=== PATIENT | female | born 1980 | race Hispanic/Latino ===

== ENCOUNTER 2018-01-07 06:32 | Day surgery (SDC) | payer BC ==
[~2018-01-07] VITALS: Ht 154.9 cm; Wt 113.4 kg
[~2018-01-07 06:32] MED LIST: BECL8.7A7 IH; BECL8.7H NS; BUDE10.2 IH; LEVO88TA4 PO; NORE-8 PO; PANT40TA25 PO; SODIUM CHLORIDE 0.9% 1000ML 1,000 ML IV ONE
[2018-01-07 07:47] VITALS: BP 119/88
[2018-01-07] MEDS ORDERED: PROPOFOL 10 MG/ML 20ML VIAL IV ONE (08:10)
[2018-01-07 08:30] VITALS: BP 111/62
== END 2018-01-07 09:00 | disposition home or self-care (01) ==
LOC: ENDO 06:32 → DAH 06:32 → ENDO 09:00
PROVIDERS: ATTEND Internal Medicine Gastroenterology
DX: K57.30 Diverticulosis of large intestine without perforation or abscess without bleeding (principal); D50.0 Iron deficiency anemia secondary to blood loss (chronic); K27.9 Peptic ulcer, site unspecified, unspecified as acute or chronic, without hemorrhage or perforation; K21.9 Gastro-esophageal reflux disease without esophagitis; J45.909 Unspecified asthma, uncomplicated; E03.9 Hypothyroidism, unspecified; Z90.49 Acquired absence of other specified parts of digestive tract; Z98.890 Other specified postprocedural states; F43.10 Post-traumatic stress disorder, unspecified; Z68.42 Body mass index [BMI] 45.0-49.9, adult; Z83.71 Family history of colonic polyps
CPT/HCPCS: 36415; 45378; 84703; A4606; J2704; J7030

== ENCOUNTER 2018-12-06 12:45 | Emergency (ER) | payer BC ==
[~2018-12-06 12:45] MED LIST changes: -BUDE10.2 IH; -SODIUM CHLORIDE 0.9% 1000ML 1,000 ML IV ONE
[2018-12-06] MEDS ORDERED: KETOROLAC TROMETHAMINE 60 MG/2 ML VIAL ONE (13:34)
[2018-12-06] MEDS ORDERED: ORPHENADRINE CITRATE 30 MG/ML ML ONE (13:34)
[2018-12-06] MEDS ORDERED: HYDROCODONE/ACETAMINOPHEN 10/325 MG TAB ONE (13:35)
[2018-12-06 13:51] LABS: APPEARANCE,URINE CLEAR (CLEAR); BILIRUBIN,URINE NEGATIVE (NEGATIVE); COLOR,URINE YELLOW (YELLOW); GLUCOSE, URINE (UA) NEGATIVE (NEGATIVE); KETONES,URINE NEGATIVE (NEGATIVE); LEUKOCYTE ESTERASE ,URINE NEGATIVE (NEGATIVE); NITRATE,URINE NEGATIVE (NEGATIVE); OCCULT BLOOD,URINE NEGATIVE (NEGATIVE); PROTEIN,URINE NEGATIVE (NEGATIVE); UROBILINOGEN,URINE 0.2 mg/dL (0.2-1.0)
[2018-12-06] MEDS ORDERED: MORPHINE SULFATE 8 MG/ML VIAL ONE (15:38)
[2018-12-06] MEDS ORDERED: MORPHINE SULFATE 4 MG/1ML SYG ONE (15:39)
== END 2018-12-06 16:19 | disposition home or self-care (01) ==
LOC: EDH 12:45
DX: S33.5XXA Sprain of ligaments of lumbar spine, initial encounter (principal); J45.909 Unspecified asthma, uncomplicated; E03.9 Hypothyroidism, unspecified; Z87.442 Personal history of urinary calculi; Z88.1 Allergy status to other antibiotic agents; Z91.040 Latex allergy status; Z91.018 Allergy to other foods; Z87.891 Personal history of nicotine dependence; X58.XXXA Exposure to other specified factors, initial encounter; Y93.89 Activity, other specified; Y92.89 Other specified places as the place of occurrence of the external cause; Y99.8 Other external cause status
CPT/HCPCS: 81003; 81025; 96372 ×3; 99284; J1885; J2270 ×2; J2360

== ENCOUNTER 2018-12-07 16:00 | Emergency (ER) | payer BC ==
[2018-12-07] MEDS ORDERED: SODIUM CHLORIDE 0.9% 1000ML 1,000 ML IV ONE (16:36)
[2018-12-07] MEDS ORDERED: KETOROLAC TROMETHAMINE 15MG/ML ONE ×2 (16:36→18:10)
[2018-12-07] MEDS ORDERED: DIAZEPAM 5 MG TABLET ONE (16:37)
[2018-12-07 16:41] LABS: APPEARANCE,URINE Clear (CLEAR); BILIRUBIN,URINE Negative (NEGATIVE); COLOR,URINE Yellow (YELLOW); GLUCOSE, URINE (UA) Negative (NEGATIVE); KETONES,URINE Negative (NEGATIVE); LEUKOCYTE ESTERASE ,URINE Negative (NEGATIVE); NITRATE,URINE Negative (NEGATIVE); OCCULT BLOOD,URINE Negative (NEGATIVE); PROTEIN,URINE Negative (NEGATIVE); UROBILINOGEN,URINE 0.2 mg/dL (0.2-1.0)
[2018-12-07 16:44] LABS: EOSINOPHILS % (AUTO) 0.1 % (0.0-8.0); HEMATOCRIT 38.3 % (36-48); LYMPHOCYTES % (AUTO) 22.9 % (21.0-51.0); MEAN CORPUSCULAR HEMOGLOBIN 25.8 pg (27.0-33.0); MEAN CORPUSCULAR VOLUME 83.3 fL (79-99); MONOCYTES % (AUTO) 6.8 % (3.0-13.0); NEUTROPHILS % (AUTO) 69.2 % (40.0-77.0); PLATELET COUNT (AUTO) 355 K/uL (130-400); RED BLOOD CELL COUNT(AUTO) 4.59 MIL/uL (4.00-5.50); RED CELL DISTRIBUTION WIDTH 15.3 % (11.0-15.5); WHITE BLOOD COUNT (AUTO) 12.2 K/uL (4.8-10.8)
[2018-12-07] MEDS ORDERED: LIDOCAINE 5% TOPICAL PATCH TP ONE (16:45)
[2018-12-07 16:51] LABS: CREATININE 0.6 mg/dL (0.5-1.5); POTASSIUM 3.7 mmol/L (3.5-5.1)
[2018-12-07 16:56] LABS: ALBUMIN 3.1 g/dL (3.5-5.0); BILIRUBIN,TOTAL 0.4 mg/dL (0.2-1.0); TOTAL PROTEIN, SERUM 7.8 g/dL (6.0-8.3)
[2018-12-07 17:15] LABS: INR 0.91 (0.85-1.15); PARTIAL THROMBOPLASTIN TIME 29.3 SEC (26.3-35.5); PROTHROMBIN TIME 9.6 SEC (9.6-11.6)
== END 2018-12-07 18:20 | disposition home or self-care (01) ==
LOC: EDH 16:00
DX: M54.6 Pain in thoracic spine (principal); R10.13 Epigastric pain; R11.2 Nausea with vomiting, unspecified; E03.9 Hypothyroidism, unspecified; G62.9 Polyneuropathy, unspecified; J45.909 Unspecified asthma, uncomplicated; Z88.1 Allergy status to other antibiotic agents; Z91.040 Latex allergy status; Z91.018 Allergy to other foods; Z90.49 Acquired absence of other specified parts of digestive tract; Z87.442 Personal history of urinary calculi
CPT/HCPCS: 36415; 71045; 80053; 81003; 82150; 83690; 85025; 85378; 85610; 85730; 93005; 96361; 96374; 96376; 99285; J1885 ×2; J7030

== ENCOUNTER 2021-02-11 17:17 | Emergency (ER) | payer BC ==
[~2021-02-11 17:17] MED LIST changes: -PANT40TA25 PO; +PANT40TA54 PO
[2021-02-11] MEDS ORDERED: SODIUM CHLORIDE 0.9% 1000ML 1,000 ML IV ONE (17:53)
[2021-02-11 18:35] LABS: BASOPHILS % (AUTO) 0.1 % (0.0-5.0); EOSINOPHILS % (AUTO) 0.1 % (0.0-8.0); LYMPHOCYTES % (AUTO) 30.5 % (21.0-51.0); MEAN CORPUSCULAR HEMOGLOBIN 26.9 pg (27.0-33.0); MEAN CORPUSCULAR HGB CONC 31.9 g/dL (32.0-36.0); MEAN CORPUSCULAR VOLUME 84.1 fL (79-99); MONOCYTES % (AUTO) 6.8 % (3.0-13.0); NEUTROPHILS % (AUTO) 62.1 % (40.0-77.0); PLATELET COUNT (AUTO) 342 K/uL (130-400); RED BLOOD CELL COUNT(AUTO) 4.28 MIL/uL (4.00-5.50); RED CELL DISTRIBUTION WIDTH 15.9 % (11.0-15.5); WHITE BLOOD COUNT (AUTO) 7.7 K/uL (4.8-10.8)
[2021-02-11 18:38] LABS: APPEARANCE,URINE Clear (CLEAR); BILIRUBIN,URINE Negative (NEGATIVE); COLOR,URINE Yellow (YELLOW); GLUCOSE, URINE (UA) TRACE mg/dL (NEGATIVE); KETONES,URINE Trace mg/dL (NEGATIVE); LEUKOCYTE ESTERASE ,URINE Small (NEGATIVE); NITRATE,URINE Negative (NEGATIVE); OCCULT BLOOD,URINE Large (NEGATIVE); PH,URINE 5.5 (5.0-8.0); PROTEIN,URINE Trace mg/dL (NEGATIVE); UROBILINOGEN,URINE 0.2 mg/dL (0.2-1.0)
[2021-02-11 18:40] LABS: HCG,QUAL RESULT NEGATIVE (NEGATIVE)
[2021-02-11] MEDS ORDERED: MORPHINE SULFATE 4 MG/1ML SYG ONE (18:50)
[2021-02-11 18:51] LABS: CREATININE 0.8 mg/dL (0.5-1.5); POTASSIUM 3.8 mmol/L (3.5-5.1)
[2021-02-11] MEDS ORDERED: ONDANSETRON HCL 4 MG/2 ML VIAL ONE (18:51)
[2021-02-11 19:05] LABS: ALBUMIN 3.5 g/dL (3.5-5.0); BILIRUBIN,TOTAL 0.3 mg/dL (0.2-1.0); TOTAL PROTEIN, SERUM 7.4 g/dL (6.0-8.3)
[2021-02-11 19:17] LABS: BACTERIA,URINE Few /HPF (None Seen); MUCUS,URINE Few LPF (None Seen); SQUAMOUS EPITHELIAL CELL,UR Few /HPF (0-2)
[2021-02-11] MEDS ORDERED: CEFTRIAXONE SODIUM 1 GM ONE (20:09)
[2021-02-11] MEDS ORDERED: SODIUM CHLORIDE 0.9% 50 ML IV ONE (20:12)
[2021-02-11] MEDS ORDERED: KETOROLAC TROMETHAMINE 30MG/ML ONE (20:15)
[2021-02-11] MEDS ORDERED: TAMSULOSIN HCL 0.4 MG CAP.ER.24H ONE (21:06)
[2021-02-17] MEDS ORDERED: PHEN-846 PO (03:00)
[2021-02-17] MEDS ORDERED: OXYB5TAB15 PO (03:01)
[2021-02-17] MEDS ORDERED: TAMS-1 PO (03:02)
[2021-02-17] MEDS ORDERED: CEPH250S PO (03:02)
[2021-02-17] MEDS ORDERED: ONDA4TAB4 PO (03:03)
[2021-02-17] MEDS ORDERED: MOME13HF2 IH (03:06)
[2021-02-17] MEDS ORDERED: ALBU8.5H8 IH (03:07)
[2021-02-20] MEDS ORDERED: CEFD300C3 PO (07:22)
== END 2021-02-11 22:22 | disposition home or self-care (01) ==
LOC: EDH 17:17
DX: N20.0 Calculus of kidney (principal); E03.9 Hypothyroidism, unspecified; J45.909 Unspecified asthma, uncomplicated; G62.9 Polyneuropathy, unspecified; Z90.49 Acquired absence of other specified parts of digestive tract; Z98.890 Other specified postprocedural states; Z91.040 Latex allergy status; Z91.018 Allergy to other foods; Z88.1 Allergy status to other antibiotic agents
CPT/HCPCS: 36415; 74176; 80053; 81001; 81025; 83690; 84484 ×2; 85025; 93005; 96361; 96365; 96366; 96375; 99285; J0696; J1885; J2270; J2405; J7030

== ENCOUNTER 2021-02-13 17:01 | Observation (INO) | payer BC, MEDICARE ==
[~2021-02-13] VITALS: Ht 154.9 cm; Wt 117.7 kg
[2021-02-13] MEDS ORDERED: ACETAMINOPHEN 325 MG TAB PO PRN (17:30)
[2021-02-13] MEDS ORDERED: ACETAMINOPHEN-CODEINE 300/30MG TAB PO PRN (17:30)
[2021-02-13 17:33] LABS: BASOPHILS % (AUTO) 0.2 % (0.0-5.0); EOSINOPHILS % (AUTO) 0.8 % (0.0-8.0); HEMATOCRIT 34.3 % (36-48); LYMPHOCYTES % (AUTO) 34.2 % (21.0-51.0); MEAN CORPUSCULAR HEMOGLOBIN 26.7 pg (27.0-33.0); MEAN CORPUSCULAR HGB CONC 31.8 g/dL (32.0-36.0); MEAN CORPUSCULAR VOLUME 83.9 fL (79-99); MONOCYTES % (AUTO) 7.5 % (3.0-13.0); PLATELET COUNT (AUTO) 306 K/uL (130-400); RED BLOOD CELL COUNT(AUTO) 4.09 MIL/uL (4.00-5.50); RED CELL DISTRIBUTION WIDTH 15.9 % (11.0-15.5); WHITE BLOOD COUNT (AUTO) 6.2 K/uL (4.8-10.8)
[2021-02-13] MEDS ORDERED: ONDANSETRON HCL 4 MG/2 ML VIAL ONE (17:35)
[2021-02-13] MEDS ORDERED: KETOROLAC TROMETHAMINE 30MG/ML ONE (17:35)
[2021-02-13] MEDS ORDERED: MORPHINE SULFATE 4 MG/1ML SYG ONE (17:36)
[2021-02-13 17:50] LABS: POTASSIUM 3.5 mmol/L (3.5-5.1)
[2021-02-13 17:55] LABS: ALBUMIN 3.5 g/dL (3.5-5.0); BILIRUBIN,TOTAL 0.3 mg/dL (0.2-1.0); TOTAL PROTEIN, SERUM 7.4 g/dL (6.0-8.3)
[2021-02-13] MEDS: PANTOPRAZOLE SODIUM 40 MG TABLET.DR PO SCH (18:10)
[2021-02-13] MEDS: ENOXAPARIN SODIUM 30 MG/0.3 ML SQ SCH (18:11)
[2021-02-13] MEDS: LEVOTHYROXINE 100 MCG VIAL IV SCH (18:12)
[2021-02-13 18:37] LABS: APPEARANCE,URINE Clear (CLEAR); BILIRUBIN,URINE Negative (NEGATIVE); COLOR,URINE Yellow (YELLOW); GLUCOSE, URINE (UA) Negative (NEGATIVE); KETONES,URINE Trace mg/dL (NEGATIVE); LEUKOCYTE ESTERASE ,URINE Small (NEGATIVE); NITRATE,URINE Negative (NEGATIVE); OCCULT BLOOD,URINE Negative (NEGATIVE); PROTEIN,URINE Trace mg/dL (NEGATIVE); UROBILINOGEN,URINE 0.2 mg/dL (0.2-1.0)
[2021-02-13 18:39] LABS: HCG,QUAL RESULT NEGATIVE (NEGATIVE)
[2021-02-13 18:51] LABS: RBC,URINE 0-1 /HPF (0-1)
[2021-02-13 18:52] LABS: BACTERIA,URINE Rare /HPF (None Seen); SQUAMOUS EPITHELIAL CELL,UR Few /HPF (0-2)
[2021-02-13] MEDS ORDERED: IBUPROFEN 800 MG TAB PO SCH (20:15)
[2021-02-13] MEDS: CEFTRIAXONE SODIUM 1 GM IVP SCH (20:15)
[2021-02-13] MEDS ORDERED: CEFTRIAXONE SODIUM 1 GM ONE (20:57)
[2021-02-13] MEDS: TAMSULOSIN HCL 0.4 MG CAP.ER.24H PO SCH (21:00)
[2021-02-13] MEDS ORDERED: FAMOTIDINE/PF 20 MG/2 ML VIAL IV SCH (21:00)
[2021-02-13] MEDS ORDERED: MORPHINE SULFATE 2 MG/ML 1ML SYG ONE (21:09)
[2021-02-13] MEDS ORDERED: SODIUM CHLORIDE 0.9% 1000ML 1,000 ML IV ONE (21:10)
[2021-02-13] MEDS: SODIUM CHLORIDE 0.9% 1000ML 1,000 ML IV SCH (22:55)
[2021-02-14] VITALS (26 sets, daily range): BP systolic 113–192; BP diastolic 69–109
[2021-02-14] MEDS: ONDANSETRON HCL 4 MG/2 ML VIAL IVP PRN ×3 (01:13→16:24)
[2021-02-14] MEDS: MORPHINE SULFATE 2 MG/ML 1ML SYG IVP PRN ×4 (01:14→22:46)
[2021-02-14] MEDS: SODIUM CHLORIDE 0.9% 1000ML 1,000 ML IV SCH ×3 (03:45→22:45)
[2021-02-14 04:45] LABS: HEMATOCRIT 33.4 % (36-48); LYMPHOCYTES % (AUTO) 33.5 % (21.0-51.0); MEAN CORPUSCULAR HEMOGLOBIN 26.5 pg (27.0-33.0); MEAN CORPUSCULAR HGB CONC 31.1 g/dL (32.0-36.0); MONOCYTES % (AUTO) 6.9 % (3.0-13.0); NEUTROPHILS % (AUTO) 59.2 % (40.0-77.0); PLATELET COUNT (AUTO) 299 K/uL (130-400); RED BLOOD CELL COUNT(AUTO) 3.93 MIL/uL (4.00-5.50); WHITE BLOOD COUNT (AUTO) 5.1 K/uL (4.8-10.8)
[2021-02-14 05:14] LABS: CREATININE 0.8 mg/dL (0.5-1.5); POTASSIUM 3.5 mmol/L (3.5-5.1); THYROID STIMULATING HORMONE 6.15 uIU/mL (0.36-3.74)
[2021-02-14] MEDS: LEVOTHYROXINE 100 MCG VIAL IV SCH (06:30)
[2021-02-14] MEDS: PANTOPRAZOLE SODIUM 40 MG TABLET.DR PO SCH (07:30)
[2021-02-14] MEDS: ENOXAPARIN SODIUM 30 MG/0.3 ML SQ SCH (08:12)
[2021-02-14] MEDS ORDERED: LACTATED RINGERS 1000ML 1,000 ML IV ONE (12:03)
[2021-02-14] MEDS ORDERED: IOHEXOL-350 50ML VIAL IV ONE (12:42)
[2021-02-14] MEDS ORDERED: PROPOFOL 10 MG/ML 20ML VIAL IV ONE (13:04)
[2021-02-14] MEDS ORDERED: MIDAZOLAM HCL 1 MG/ML 2ML VIAL ONE (13:04)
[2021-02-14] MEDS ORDERED: SUCCINYLCHOLINE 200MG/10ML SYR ONE (13:04)
[2021-02-14] MEDS ORDERED: LIDOCAINE PF 2% 5ML ABBOJECT ONE ×2 (13:04→13:10)
[2021-02-14] MEDS ORDERED: FENTANYL CITRATE PF 50 MCG/1 ML 2ML VIAL ONE (13:05)
[2021-02-14] MEDS ORDERED: DEXAMETHASONE SOD PHOSPHATE 10MG/ML 1ML VIAL ONE (13:27)
[2021-02-14] MEDS ORDERED: ONDANSETRON HCL 4 MG/2 ML VIAL ONE (13:27)
[2021-02-14] MEDS ORDERED: PHENAZOPYRIDINE HCL 200 MG TABLET ONE (14:56)
[2021-02-14] MEDS ORDERED: METOPROLOL TARTRATE 50 MG TAB PO SCH (19:14)
[2021-02-14] MEDS: METOPROLOL TARTRATE 25 MG TAB PO SCH (20:20)
[2021-02-14] MEDS: CEFTRIAXONE SODIUM 1 GM IVP SCH (20:20)
[2021-02-14] MEDS: TAMSULOSIN HCL 0.4 MG CAP.ER.24H PO SCH (20:20)
[2021-02-14] MEDS: OXYBUTYNIN CHLORIDE 5 MG TABLET PO SCH (20:27)
[2021-02-15 03:26] VITALS: BP 114/63
[2021-02-15 05:31] LABS: BASOPHILS % (AUTO) 0.1 % (0.0-5.0); LYMPHOCYTES % (AUTO) 17.2 % (21.0-51.0); MEAN CORPUSCULAR HEMOGLOBIN 26.2 pg (27.0-33.0); MEAN CORPUSCULAR HGB CONC 31.1 g/dL (32.0-36.0); MEAN CORPUSCULAR VOLUME 84.3 fL (79-99); MONOCYTES % (AUTO) 4.1 % (3.0-13.0); NEUTROPHILS % (AUTO) 78.1 % (40.0-77.0); PLATELET COUNT (AUTO) 354 K/uL (130-400); RED BLOOD CELL COUNT(AUTO) 4.27 MIL/uL (4.00-5.50); RED CELL DISTRIBUTION WIDTH 15.6 % (11.0-15.5); WHITE BLOOD COUNT (AUTO) 10.2 K/uL (4.8-10.8)
[2021-02-15] MEDS: LEVOTHYROXINE 100 MCG VIAL IV SCH (05:50)
[2021-02-15 05:57] LABS: ALBUMIN 3.1 g/dL (3.5-5.0); BILIRUBIN,TOTAL 0.3 mg/dL (0.2-1.0); CREATININE 0.8 mg/dL (0.5-1.5); POTASSIUM 4.4 mmol/L (3.5-5.1)
[2021-02-15 07:56] VITALS: BP 126/76
[2021-02-15] MEDS: PANTOPRAZOLE SODIUM 40 MG TABLET.DR PO SCH (08:42)
[2021-02-15] MEDS: ENOXAPARIN SODIUM 30 MG/0.3 ML SQ SCH (08:42)
[2021-02-15] MEDS: OXYBUTYNIN CHLORIDE 5 MG TABLET PO SCH (08:42)
[2021-02-15] MEDS: METOPROLOL TARTRATE 25 MG TAB PO SCH (08:45)
[2021-02-15] MEDS: SODIUM CHLORIDE 0.9% 1000ML 1,000 ML IV SCH (10:34)
[2021-02-15 11:38] VITALS: BP 125/68
[2021-02-15 16:59] VITALS: BP 134/81
[2021-02-15] MEDS ORDERED: METO25 PO (18:01)
[2021-02-17] MEDS ORDERED: PHEN-846 PO (03:00)
[2021-02-17] MEDS ORDERED: OXYB5TAB15 PO (03:01)
[2021-02-17] MEDS ORDERED: TAMS-1 PO (03:02)
[2021-02-17] MEDS ORDERED: CEPH250S PO (03:02)
[2021-02-17] MEDS ORDERED: ONDA4TAB4 PO (03:03)
[2021-02-17] MEDS ORDERED: MOME13HF2 IH (03:06)
[2021-02-17] MEDS ORDERED: ALBU8.5H8 IH (03:07)
[2021-02-20] MEDS ORDERED: CEFD300C3 PO (07:22)
== END 2021-02-15 18:35 | disposition home or self-care (01) ==
LOC: EDH 17:01 → EDHIP 17:27 → 3CH 22:39
PROVIDERS: ADMIT Family Medicine; ATTEND Family Medicine
DX: N13.2 Hydronephrosis with renal and ureteral calculous obstruction (principal); J45.909 Unspecified asthma, uncomplicated; E66.01 Morbid (severe) obesity due to excess calories; E03.9 Hypothyroidism, unspecified; G62.9 Polyneuropathy, unspecified; Z90.49 Acquired absence of other specified parts of digestive tract; Z79.899 Other long term (current) drug therapy; Z88.1 Allergy status to other antibiotic agents; Z91.040 Latex allergy status; Z88.8 Allergy status to other drugs, medicaments and biological substances; Z91.018 Allergy to other foods; Z68.42 Body mass index [BMI] 45.0-49.9, adult
CPT/HCPCS: 36415; 52330; 52332; 80053; 81001; 81025; 85025; 87088; 99284; G0378 ×7; J0696; J1885; J2270; J2405; J3490; J7030; 74018; 80048; 82360; 84443; 96361; 96372; 96374; 96375; 96376; A4314; A4354; C1769; C2617; J0330; J1100; J1650; J2001; J2250; J2704; J3010; J7120; Q9967

== ENCOUNTER 2021-02-16 20:38 | Inpatient (IN) | payer BC, MEDICARE ==
[~2021-02-16] VITALS: Ht 154.9 cm; Wt 113.4 kg
[~2021-02-16 20:38] MED LIST changes: +METO25 PO
[2021-02-16 21:09] LABS: APPEARANCE,URINE Cloudy (CLEAR); BILIRUBIN,URINE Negative (NEGATIVE); COLOR,URINE Dark Yellow (YELLOW); GLUCOSE, URINE (UA) Negative (NEGATIVE); KETONES,URINE Negative (NEGATIVE); LEUKOCYTE ESTERASE ,URINE Moderate (NEGATIVE); NITRATE,URINE Positive (NEGATIVE); OCCULT BLOOD,URINE Large (NEGATIVE); PROTEIN,URINE Trace mg/dL (NEGATIVE)
[2021-02-16] MEDS ORDERED: ZOSYN 3.375GM+NS 50ML 50 ML IV ONE (21:09)
[2021-02-16] MEDS ORDERED: 0.9%NACL 1000ML 3,000 ML IV ONE (21:10)
[2021-02-16 21:21] LABS: BACTERIA,URINE Few /HPF (None Seen)
[2021-02-16 21:22] LABS: MUCUS,URINE Few LPF (None Seen); SQUAMOUS EPITHELIAL CELL,UR Few /HPF (0-2)
[2021-02-16 21:35] LABS: BASOPHILS % (AUTO) 0.1 % (0.0-5.0); EOSINOPHILS % (AUTO) 0.1 % (0.0-8.0); HEMATOCRIT 36.2 % (36-48); LYMPHOCYTES % (AUTO) 17.9 % (21.0-51.0); MEAN CORPUSCULAR HEMOGLOBIN 26.8 pg (27.0-33.0); MEAN CORPUSCULAR HGB CONC 32.3 g/dL (32.0-36.0); MEAN CORPUSCULAR VOLUME 82.8 fL (79-99); MONOCYTES % (AUTO) 5.4 % (3.0-13.0); NEUTROPHILS % (AUTO) 76.1 % (40.0-77.0); PLATELET COUNT (AUTO) 320 K/uL (130-400); RED BLOOD CELL COUNT(AUTO) 4.37 MIL/uL (4.00-5.50); RED CELL DISTRIBUTION WIDTH 15.9 % (11.0-15.5); WHITE BLOOD COUNT (AUTO) 10.3 K/uL (4.8-10.8)
[2021-02-16] MEDS ORDERED: ONDANSETRON 4MG INJ ONE (21:35)
[2021-02-16] MEDS ORDERED: HYDROMORPHONE 1 MG INJ ONE ×2 (21:36→23:19)
[2021-02-16 21:52] LABS: CREATININE 0.9 mg/dL (0.5-1.5); INR 1.03 (0.85-1.15); POTASSIUM 3.6 mmol/L (3.5-5.1); PROTHROMBIN TIME 11.2 SEC (9.6-11.6)
[2021-02-16 21:53] LABS: PARTIAL THROMBOPLASTIN TIME 24.9 SEC (26.3-35.5)
[2021-02-16 21:56] LABS: ALBUMIN 3.7 g/dL (3.5-5.0); BILIRUBIN,TOTAL 0.4 mg/dL (0.2-1.0); CRP QUANTITATIVE 40.7 mg/L (0.00-9.0); TOTAL PROTEIN, SERUM 7.9 g/dL (6.0-8.3)
[2021-02-16] MEDS ORDERED: ACETAMINOPHEN 500 MG TABLET ONE (22:48)
[2021-02-17] MEDS ORDERED: MAG/ALUM/SIMETH 30 ML UDCUP PO PRN (00:15)
[2021-02-17] MEDS ORDERED: DiphenhydrAMINE HCL 50 MG/ML VIAL IV PRN (00:15)
[2021-02-17] MEDS ORDERED: NITROGLYCERIN 0.4 MG SL TAB SL PRN (00:15)
[2021-02-17] MEDS: MEROPENEM 1 GM VIAL IVP SCH ×3 (00:15→17:21)
[2021-02-17] MEDS: LACTATED RINGERS 1000ML 1,000 ML IV SCH ×2 (00:15→13:35)
[2021-02-17] MEDS ORDERED: DIPHENHYDRAMINE HCL 25 MG CAPSULE PO PRN (00:15)
[2021-02-17] MEDS ORDERED: LACTULOSE 20 GM/30 ML UDCUP PO PRN (00:15)
[2021-02-17] MEDS ORDERED: GUAIFENESIN-DM 200/20 MG 10 ML PO PRN (00:15)
[2021-02-17] MEDS ORDERED: MEROPENEM 1 GM VIAL ONE (00:27)
[2021-02-17] MEDS ORDERED: IOHEXOL 350 MG/ML 100ML INFUS..BTL IV ONE (00:58)
[2021-02-17 02:25] VITALS: BP 126/74
[2021-02-17] MEDS ORDERED: PHEN-846 PO ×2 (03:00)
[2021-02-17] MEDS ORDERED: OXYB5TAB15 PO ×2 (03:01)
[2021-02-17] MEDS ORDERED: TAMS-1 PO ×2 (03:02)
[2021-02-17] MEDS ORDERED: CEPH250S PO ×2 (03:02)
[2021-02-17] MEDS ORDERED: ONDA4TAB4 PO ×2 (03:03)
[2021-02-17] MEDS ORDERED: MOME13HF2 IH ×2 (03:06)
[2021-02-17] MEDS ORDERED: ALBU8.5H8 IH ×2 (03:07)
[2021-02-17] MEDS: ONDANSETRON 4MG INJ IV PRN ×2 (03:21→14:06)
[2021-02-17] MEDS: ACETAMINOPHEN 325 MG TAB PO PRN ×3 (03:22→20:10)
[2021-02-17 05:22] LABS: BASOPHILS % (AUTO) 0.1 % (0.0-5.0); EOSINOPHILS % (AUTO) 1.8 % (0.0-8.0); HEMATOCRIT 32.8 % (36-48); LYMPHOCYTES % (AUTO) 23.2 % (21.0-51.0); MEAN CORPUSCULAR HEMOGLOBIN 26.7 pg (27.0-33.0); MEAN CORPUSCULAR HGB CONC 31.7 g/dL (32.0-36.0); MEAN CORPUSCULAR VOLUME 84.1 fL (79-99); MONOCYTES % (AUTO) 7.9 % (3.0-13.0); NEUTROPHILS % (AUTO) 66.5 % (40.0-77.0); PLATELET COUNT (AUTO) 294 K/uL (130-400); RED CELL DISTRIBUTION WIDTH 15.9 % (11.0-15.5); WHITE BLOOD COUNT (AUTO) 8.3 K/uL (4.8-10.8)
[2021-02-17 05:47] LABS: ALBUMIN 3.1 g/dL (3.5-5.0); BILIRUBIN,TOTAL 0.4 mg/dL (0.2-1.0); CREATININE 0.8 mg/dL (0.5-1.5); POTASSIUM 3.6 mmol/L (3.5-5.1); TOTAL PROTEIN, SERUM 6.7 g/dL (6.0-8.3)
[2021-02-17 06:37] VITALS: BP 130/81
[2021-02-17] MEDS: FAMOTIDINE 20MG VIAL IV SCH ×2 (08:14→20:09)
[2021-02-17] MEDS: HEPARIN 5,000 UNIT VIAL SQ SCH ×3 (10:42→20:09)
[2021-02-17 11:53] VITALS: BP 154/96
[2021-02-17] MEDS: ACETAMINOPHEN WITH CODEINE 1 TAB TAB PO PRN (14:04)
[2021-02-17 16:00] VITALS: BP 131/84
[2021-02-17 19:00] VITALS: BP 155/83
[2021-02-18] VITALS: BP 145/79
[2021-02-18] MEDS: MEROPENEM 1 GM VIAL IVP SCH ×3 (00:40→16:38)
[2021-02-18] MEDS: ACETAMINOPHEN WITH CODEINE 1 TAB TAB PO PRN ×2 (00:41→16:49)
[2021-02-18] MEDS: ONDANSETRON 4MG INJ IV PRN (00:46)
[2021-02-18 04:00] VITALS: BP 143/86
[2021-02-18 05:39] LABS: BASOPHILS % (AUTO) 0.1 % (0.0-5.0); EOSINOPHILS % (AUTO) 1.6 % (0.0-8.0); HEMATOCRIT 34.7 % (36-48); LYMPHOCYTES % (AUTO) 29.3 % (21.0-51.0); MEAN CORPUSCULAR HEMOGLOBIN 26.3 pg (27.0-33.0); MEAN CORPUSCULAR HGB CONC 31.1 g/dL (32.0-36.0); MEAN CORPUSCULAR VOLUME 84.6 fL (79-99); NEUTROPHILS % (AUTO) 63.7 % (40.0-77.0); PLATELET COUNT (AUTO) 299 K/uL (130-400); RED CELL DISTRIBUTION WIDTH 15.7 % (11.0-15.5); WHITE BLOOD COUNT (AUTO) 8.8 K/uL (4.8-10.8)
[2021-02-18 06:06] LABS: ALBUMIN 2.8 g/dL (3.5-5.0); BILIRUBIN,TOTAL 0.3 mg/dL (0.2-1.0); CREATININE 0.8 mg/dL (0.5-1.5); POTASSIUM 3.7 mmol/L (3.5-5.1); TOTAL PROTEIN, SERUM 6.7 g/dL (6.0-8.3)
[2021-02-18 08:57] VITALS: BP 139/86
[2021-02-18] MEDS: HEPARIN 5,000 UNIT VIAL SQ SCH ×3 (09:10→21:00)
[2021-02-18] MEDS: FAMOTIDINE 20MG VIAL IV SCH (09:11)
[2021-02-18 12:00] VITALS: BP 135/72
[2021-02-18 16:31] VITALS: BP 117/66
[2021-02-18] MEDS: ACETAMINOPHEN 325 MG TAB PO PRN (18:32)
[2021-02-18 19:00] VITALS: BP 139/83
[2021-02-19] VITALS (7 sets, daily range): BP systolic 131–156; BP diastolic 66–91
[2021-02-19] MEDS ORDERED: FLUCONAZOLE 400 MG/NS 200 ML 200 ML IV ONE
[2021-02-19] MEDS: MEROPENEM 1 GM VIAL IVP SCH ×3 (00:12→17:14)
[2021-02-19] MEDS: ACETAMINOPHEN WITH CODEINE 1 TAB TAB PO PRN ×2 (00:18→20:00)
[2021-02-19] MEDS: ONDANSETRON 4MG INJ IV PRN ×3 (00:24→17:55)
[2021-02-19] MEDS ORDERED: HYDROMORPHONE 0.5 MG SYG (0.5MG/0.5ML) ONE (02:43)
[2021-02-19] MEDS ORDERED: HYDROMORPHONE 0.5 MG SYG (0.5MG/0.5ML) IVP PRN (02:45)
[2021-02-19] MEDS: OXYBUTYNIN CHLORIDE 5 MG TABLET PO SCH ×3 (02:47→20:00)
[2021-02-19 04:23] LABS: BASOPHILS % (AUTO) 0.1 % (0.0-5.0); EOSINOPHILS % (AUTO) 0.1 % (0.0-8.0); LYMPHOCYTES % (AUTO) 31.5 % (21.0-51.0); MEAN CORPUSCULAR HGB CONC 30.9 g/dL (32.0-36.0); MEAN CORPUSCULAR VOLUME 84.3 fL (79-99); MONOCYTES % (AUTO) 5.5 % (3.0-13.0); NEUTROPHILS % (AUTO) 62.4 % (40.0-77.0); PLATELET COUNT (AUTO) 323 K/uL (130-400); RED BLOOD CELL COUNT(AUTO) 4.15 MIL/uL (4.00-5.50); RED CELL DISTRIBUTION WIDTH 15.8 % (11.0-15.5); WHITE BLOOD COUNT (AUTO) 9.4 K/uL (4.8-10.8)
[2021-02-19 04:46] LABS: ALBUMIN 2.9 g/dL (3.5-5.0); BILIRUBIN,TOTAL 0.2 mg/dL (0.2-1.0); CREATININE 0.7 mg/dL (0.5-1.5); POTASSIUM 3.5 mmol/L (3.5-5.1); TOTAL PROTEIN, SERUM 6.8 g/dL (6.0-8.3)
[2021-02-19] MEDS: LEVOTHYROXINE 75 MCG TABLET PO SCH (05:35)
[2021-02-19] MEDS: PANTOPRAZOLE 40 MG TAB DR PO SCH (05:35)
[2021-02-19] MEDS: PHENAZOPYRIDINE HCL 200 MG TABLET PO SCH ×3 (09:33→20:00)
[2021-02-19] MEDS: HEPARIN 5,000 UNIT VIAL SQ SCH ×3 (09:33→20:01)
[2021-02-19] MEDS: ACETAMINOPHEN 325 MG TAB PO PRN (10:14)
[2021-02-20] MEDS: ONDANSETRON 4MG INJ IV PRN ×2 (02:52→09:29)
[2021-02-20] MEDS: MEROPENEM 1 GM VIAL IVP SCH ×2 (02:52→09:18)
[2021-02-20 04:00] VITALS: BP 138/74
[2021-02-20] MEDS: LEVOTHYROXINE 75 MCG TABLET PO SCH (06:01)
[2021-02-20] MEDS: PANTOPRAZOLE 40 MG TAB DR PO SCH (06:01)
[2021-02-20 06:20] LABS: BASOPHILS % (AUTO) 0.1 % (0.0-5.0); EOSINOPHILS % (AUTO) 0.1 % (0.0-8.0); HEMATOCRIT 34.9 % (36-48); LYMPHOCYTES % (AUTO) 31.4 % (21.0-51.0); MEAN CORPUSCULAR HEMOGLOBIN 26.7 pg (27.0-33.0); MEAN CORPUSCULAR HGB CONC 32.1 g/dL (32.0-36.0); MEAN CORPUSCULAR VOLUME 83.3 fL (79-99); MONOCYTES % (AUTO) 5.7 % (3.0-13.0); NEUTROPHILS % (AUTO) 62.3 % (40.0-77.0); PLATELET COUNT (AUTO) 323 K/uL (130-400); RED BLOOD CELL COUNT(AUTO) 4.19 MIL/uL (4.00-5.50); RED CELL DISTRIBUTION WIDTH 15.7 % (11.0-15.5); WHITE BLOOD COUNT (AUTO) 9.5 K/uL (4.8-10.8)
[2021-02-20 06:29] LABS: CREATININE 0.7 mg/dL (0.5-1.5)
[2021-02-20] MEDS ORDERED: CEFD300C3 PO ×2 (07:22)
[2021-02-20 08:00] VITALS: BP 136/76
[2021-02-20] MEDS ORDERED: FLUCONAZOLE 400 MG/NS 200 ML 200 ML IV ONE (09:00)
[2021-02-20] MEDS: PHENAZOPYRIDINE HCL 200 MG TABLET PO SCH (09:18)
[2021-02-20] MEDS: OXYBUTYNIN CHLORIDE 5 MG TABLET PO SCH (09:18)
[2021-02-20] MEDS: HEPARIN 5,000 UNIT VIAL SQ SCH (09:29)
[2021-02-20] MEDS: ACETAMINOPHEN 325 MG TAB PO PRN (09:38)
[2021-02-20 11:50] VITALS: BP 167/96
[2021-06-12] MEDS ORDERED: KETO10 PO (10:21)
[2021-07-10] MEDS ORDERED: OXYB5TAB15 PO (17:05)
[2021-07-10] MEDS ORDERED: FEXO1TAB8 PO (17:05)
== END 2021-02-20 16:14 | disposition home or self-care (01) | DRG 659 ==
LOC: EDH 20:38 → EDHIP 02-17 00:08 → 4AH 02-17 02:20
PROVIDERS: ADMIT Family Medicine; ATTEND Family Medicine
PROC: 0TC68ZZ Extirpation of Matter from Right Ureter, Via Natural or Artificial Opening Endoscopic (ICD-10-PCS; principal; 2021-02-17)
PROC: 0T768DZ Dilation of Right Ureter with Intraluminal Device, Via Natural or Artificial Opening Endoscopic (ICD-10-PCS; 2021-02-17)
DX: N10 Acute pyelonephritis (principal); J96.01 Acute respiratory failure with hypoxia; Z68.42 Body mass index [BMI] 45.0-49.9, adult; N20.0 Calculus of kidney; Z87.442 Personal history of urinary calculi; E66.01 Morbid (severe) obesity due to excess calories; Z83.3 Family history of diabetes mellitus; Z82.49 Family history of ischemic heart disease and other diseases of the circulatory system; Z82.3 Family history of stroke; Z20.822 Contact with and (suspected) exposure to COVID-19
CPT/HCPCS: 36415; 71045; 71275; 74018; 74176; 80048; 80053; 81001; 81025; 82360; 83605; 84145; 84443; 85025; 85610; 85730; 86140; 86900; 86901; 87040; 87088; 87426; 87804; 93005; 96361; 96372; 96374; 96375; 96376; A4314; A4354; C1769; C2617; G0378; J0330; J0696; J1100; J1170; J1200; J1450; J1644; J1650; J2001; J2185; J2250; J2405; J2543; J2704; J3010; J3490; J7030; J7120; Q9967; U0003

== ENCOUNTER 2021-06-03 19:35 | Emergency (ER) | payer BC, MEDICARE ==
[~2021-06-03] VITALS: Ht 154.9 cm; Wt 106.6 kg
[~2021-06-03 19:35] MED LIST changes: +ALBU8.5H8 IH; +CEFD300C3 PO; +MOME13HF2 IH; +ONDA4TAB4 PO; +OXYB5TAB15 PO; +PHEN-846 PO; +TAMS-1 PO
[2021-06-03 20:40] VITALS: BP 140/73
[2021-06-03 22:14] VITALS: BP 137/83
[2021-06-03] MEDS ORDERED: 0.9%NACL 50ML 50 ML IV ONE (22:50)
[2021-06-03] MEDS ORDERED: ZOSYN 3.375GM +NS 50ML IV ONE (23:00)
[2021-06-03] MEDS ORDERED: ACETAMINOPHEN 325 MG TAB PO ONE (23:00)
[2021-06-03] MEDS ORDERED: 0.9%NACL 1000ML 1,000 ML IV ONE (23:00)
[2021-06-03] MEDS ORDERED: ONDANSETRON 4MG INJ IVP ONE (23:00)
[2021-06-03] MEDS ORDERED: KETOROLAC 30MG VIAL (30MG/ML) IVP ONE (23:00)
[2021-06-03] MEDS ORDERED: TAMSULOSIN HCL 0.4 MG CAP.ER.24H PO SCH (23:00)
[2021-06-03] MEDS ORDERED: MORPHINE 4 MG SYG IVP ONE (23:00)
[2021-06-03 23:03] LABS: APPEARANCE,URINE Clear (CLEAR); BILIRUBIN,URINE Negative (NEGATIVE); COLOR,URINE Yellow (YELLOW); GLUCOSE, URINE (UA) Negative (NEGATIVE); KETONES,URINE Negative (NEGATIVE); LEUKOCYTE ESTERASE ,URINE Negative (NEGATIVE); NITRATE,URINE Negative (NEGATIVE); OCCULT BLOOD,URINE Negative (NEGATIVE); PROTEIN,URINE Negative (NEGATIVE)
[2021-06-03 23:05] LABS: HCG,QUAL RESULT NEGATIVE (NEGATIVE)
[2021-06-04] LABS: EOSINOPHILS % (AUTO) 1.5 % (0.0-8.0); HEMATOCRIT 36.3 % (36-48); LYMPHOCYTES % (AUTO) 31.3 % (21.0-51.0); MEAN CORPUSCULAR HEMOGLOBIN 24.9 pg (27.0-33.0); MEAN CORPUSCULAR VOLUME 83.1 fL (79-99); MONOCYTES % (AUTO) 4.9 % (3.0-13.0); NEUTROPHILS % (AUTO) 62.1 % (40.0-77.0); PLATELET COUNT (AUTO) 326 K/uL (130-400); RED BLOOD CELL COUNT(AUTO) 4.37 MIL/uL (4.00-5.50); RED CELL DISTRIBUTION WIDTH 15.8 % (11.0-15.5); WHITE BLOOD COUNT (AUTO) 8.5 K/uL (4.8-10.8)
[2021-06-04 00:03] LABS: CREATININE 0.9 mg/dL (0.5-1.5); POTASSIUM 4.4 mmol/L (3.5-5.1)
[2021-06-04 00:07] LABS: ALBUMIN 3.3 g/dL (3.5-5.0); BILIRUBIN,TOTAL 0.4 mg/dL (0.2-1.0); TOTAL PROTEIN, SERUM 7.8 g/dL (6.0-8.3)
[2021-06-04] MEDS ORDERED: TAMS-1 PO (01:53)
[2021-06-04] MEDS ORDERED: PROM25TA7 PO (01:53)
[2021-06-12] MEDS ORDERED: KETO10 PO (10:21)
[2021-07-10] MEDS ORDERED: OXYB5TAB15 PO (17:05)
[2021-07-10] MEDS ORDERED: FEXO1TAB8 PO (17:05)
== END 2021-06-04 02:14 | disposition home or self-care (01) ==
LOC: EDH 20:02
DX: N13.2 Hydronephrosis with renal and ureteral calculous obstruction (principal); Z20.822 Contact with and (suspected) exposure to COVID-19; J45.909 Unspecified asthma, uncomplicated; E03.9 Hypothyroidism, unspecified; Z79.51 Long term (current) use of inhaled steroids; Z79.899 Other long term (current) drug therapy; Z79.1 Long term (current) use of non-steroidal anti-inflammatories (NSAID)
CPT/HCPCS: 36415; 74176; 80053; 81003; 81025; 83605; 83690; 85025; 87040 ×2; 87088; 87635; 87804 ×2; 87880; 96365; 96375; 99284; C9803; J1885; J2270; J2405; J2543

== ENCOUNTER 2021-06-13 07:03 | Day surgery (SDC) | payer BC, MEDICARE ==
[2021-06-10 13:25] VITALS: BP 144/93
[~2021-06-13] VITALS: Ht 152.4 cm; Wt 105.1 kg
[2021-06-13] VITALS (19 sets, daily range): BP systolic 102–132; BP diastolic 51–78
[~2021-06-13 07:03] MED LIST changes: -BECL8.7H NS; -CEFD300C3 PO; +KETO10 PO; -METO25 PO; -MOME13HF2 IH; -NORE-8 PO; -ONDA4TAB4 PO; -OXYB5TAB15 PO; -PHEN-846 PO
[2021-06-13] MEDS ORDERED: IOHEXOL-350 50ML VIAL IV ONE (07:47)
[2021-06-13] MEDS ORDERED: 0.9%NACL 1000ML 0 ML IV ONE (07:50)
[2021-06-13] MEDS ORDERED: LACTATED RINGERS 1000ML 1,000 ML IV ONE (08:01)
[2021-06-13] MEDS ORDERED: ROCURONIUM 10MG/1ML SYR 10 MG/ML ML ONE (08:03)
[2021-06-13] MEDS ORDERED: LIDOCAINE PF 100MG/5ML (2%) SYRINGE 5ML ONE (08:03)
[2021-06-13] MEDS ORDERED: PROPOFOL 10 MG/ML 20ML VIAL IV ONE (08:03)
[2021-06-13] MEDS ORDERED: SUCCINYLCHOLINE 200MG/10ML SYR ONE (08:03)
[2021-06-13] MEDS ORDERED: FENTANYL CITRATE PF 50 MCG/1 ML 2ML VIAL ONE (08:04)
[2021-06-13] MEDS: CEFTRIAXONE 1G VIAL IVP SCH ×2 (08:10→08:35)
[2021-06-13] MEDS ORDERED: MIDAZOLAM HCL 1 MG/ML 2ML VIAL ONE (08:22)
[2021-06-13] MEDS ORDERED: EPHEDRINE SULFATE 50 MG/ML AMPULE ONE (08:56)
[2021-06-13] MEDS ORDERED: NEOSTIGMINE 5MG/5ML SYR IV ONE (09:02)
[2021-06-13] MEDS ORDERED: GLYCOPYRROLATE 1 MG/5 ML SYRINGE ONE (09:02)
[2021-06-13] MEDS ORDERED: ONDANSETRON 4MG INJ ONE (09:03)
[2021-06-13] MEDS ORDERED: KETOROLAC 30MG VIAL (30MG/ML) ONE (09:03)
[2021-06-13] MEDS ORDERED: MEPERIDINE-PF 25 MG/ML SYG ONE ×2 (09:34→09:45)
[2021-06-13] MEDS ORDERED: PHENAZOPYRIDINE HCL 200 MG TABLET ONE (10:18)
== END 2021-06-13 11:20 | disposition home or self-care (01) ==
LOC: DAH 07:03
PROVIDERS: ATTEND Urology
DX: N13.2 Hydronephrosis with renal and ureteral calculous obstruction (principal); Z20.822 Contact with and (suspected) exposure to COVID-19; K21.9 Gastro-esophageal reflux disease without esophagitis; E03.9 Hypothyroidism, unspecified; J45.909 Unspecified asthma, uncomplicated; Z98.890 Other specified postprocedural states; E66.9 Obesity, unspecified; Z90.49 Acquired absence of other specified parts of digestive tract; Z91.040 Latex allergy status; Z88.8 Allergy status to other drugs, medicaments and biological substances; Z68.42 Body mass index [BMI] 45.0-49.9, adult; Z79.899 Other long term (current) drug therapy
CPT/HCPCS: 36415; 52332; 74420; 84703; 87635; A4215; A4221; A4222; A4223; A4344; A4354; A4358; A4510; A4600; A4663; A4930; A6260; C1758 ×2; C1769; C2617; C9803; J0330; J0696; J1885; J2001; J2175 ×2; J2250; J2405; J2704; J2710; J3010; J3490 ×2; J7120 ×2; Q9967; J7030

== ENCOUNTER 2021-07-11 09:05 | Day surgery (SDC) | payer BC, MEDICARE ==
[2021-07-10 16:15] VITALS: BP 145/87
[~2021-07-11] VITALS: Ht 154.9 cm; Wt 106.1 kg
[2021-07-11] VITALS (19 sets, daily range): BP systolic 128–181; BP diastolic 79–106
[~2021-07-11 09:05] MED LIST changes: -ALBU8.5H8 IH; -BECL8.7A7 IH; +FEXO1TAB8 PO; -KETO10 PO; +OXYB5TAB15 PO; -TAMS-1 PO
[2021-07-11] MEDS ORDERED: CEFTRIAXONE 1G VIAL ONE (09:28)
[2021-07-11] MEDS: CEFTRIAXONE 1G VIAL IVP ONE ×2 (09:37→11:51)
[2021-07-11] MEDS ORDERED: LACTATED RINGERS 1000ML 1,000 ML IV ONE (09:38)
[2021-07-11] MEDS ORDERED: IOHEXOL-350 50ML VIAL IV ONE (10:07)
[2021-07-11] MEDS ORDERED: LIDOCAINE PF 100MG/5ML (2%) SYRINGE 5ML ONE (11:28)
[2021-07-11] MEDS ORDERED: PROPOFOL 10 MG/ML 20ML VIAL IV ONE (11:28)
[2021-07-11] MEDS ORDERED: MIDAZOLAM HCL 1 MG/ML 2ML VIAL ONE (11:28)
[2021-07-11] MEDS ORDERED: SUCCINYLCHOLINE 200MG/10ML SYR ONE (11:28)
[2021-07-11] MEDS ORDERED: FENTANYL CITRATE PF 50 MCG/1 ML 2ML VIAL ONE (11:29)
[2021-07-11] MEDS ORDERED: ROCURONIUM 10MG/1ML SYR 10 MG/ML ML ONE (11:52)
[2021-07-11] MEDS ORDERED: DEXAMETHASONE SOD PHOSPHATE 10MG/ML 1ML VIAL ONE (12:03)
[2021-07-11] MEDS ORDERED: ONDANSETRON 4MG INJ ONE ×2 (12:03→14:19)
[2021-07-11] MEDS ORDERED: GLYCOPYRROLATE 1 MG/5 ML SYRINGE ONE (12:40)
[2021-07-11] MEDS ORDERED: NEOSTIGMINE 5MG/5ML SYR IV ONE (12:40)
[2021-07-11] MEDS ORDERED: MEPERIDINE-PF 25 MG/ML SYG ONE ×2 (13:19→13:34)
[2021-07-11] MEDS ORDERED: HYDRALAZINE 20MG/ML VIAL ONE (13:30)
[2021-07-11] MEDS ORDERED: PHENAZOPYRIDINE HCL 200 MG TABLET PO SCH (14:00)
[2021-07-11] MEDS ORDERED: ACETAMINOPHEN WITH CODEINE 1 TAB TAB ONE ×2 (14:08→15:06)
== END 2021-07-11 15:45 | disposition home or self-care (01) ==
LOC: DAH 09:05
PROVIDERS: ATTEND Urology
DX: N13.2 Hydronephrosis with renal and ureteral calculous obstruction (principal); Z20.822 Contact with and (suspected) exposure to COVID-19; J45.909 Unspecified asthma, uncomplicated; E03.9 Hypothyroidism, unspecified; E66.9 Obesity, unspecified; K21.9 Gastro-esophageal reflux disease without esophagitis; Z98.890 Other specified postprocedural states; Z90.49 Acquired absence of other specified parts of digestive tract; Z91.040 Latex allergy status; Z88.8 Allergy status to other drugs, medicaments and biological substances; Z79.899 Other long term (current) drug therapy; Z79.890 Hormone replacement therapy; Z68.42 Body mass index [BMI] 45.0-49.9, adult
CPT/HCPCS: 36415; 52356; 74018; 84703; 87426; A4215; A4221; A4222; A4223; A4358; A4600; A4649; A4663; C1758; C1769; C2617; J0330; J0360; J0696; J1100; J2001; J2175 ×2; J2250; J2405 ×2; J2704; J2710; J3010; J3490; J7120; Q9967

== ENCOUNTER 2021-10-30 11:32 | Emergency (ER) | payer BC ==
[~2021-10-30] VITALS: Ht 154.9 cm; Wt 99.8 kg
[2021-10-30 12:32] LABS: BASOPHILS % (AUTO) 0.2 % (0.0-5.0); EOSINOPHILS % (AUTO) 0.1 % (0.0-8.0); HEMATOCRIT 37.7 % (36-48); LYMPHOCYTES % (AUTO) 22.4 % (21.0-51.0); MEAN CORPUSCULAR VOLUME 80.6 fL (79-99); MONOCYTES % (AUTO) 2.9 % (3.0-13.0); PLATELET COUNT (AUTO) 348 K/uL (130-400); RED BLOOD CELL COUNT(AUTO) 4.68 MIL/uL (4.00-5.50); RED CELL DISTRIBUTION WIDTH 15.6 % (11.0-15.5); WHITE BLOOD COUNT (AUTO) 11.9 K/uL (4.8-10.8)
[2021-10-30] MEDS ORDERED: ONDANSETRON 4MG INJ ONE (12:39)
[2021-10-30] MEDS ORDERED: 0.9% NACL 500ML IV.SOLN 500 ML IV ONE (12:40)
[2021-10-30] MEDS ORDERED: MORPHINE 4 MG SYG ONE ×2 (12:40→16:12)
[2021-10-30 12:43] LABS: APPEARANCE,URINE Clear (CLEAR); BILIRUBIN,URINE Negative (NEGATIVE); COLOR,URINE Yellow (YELLOW); GLUCOSE, URINE (UA) >=1000 mg/dL (NEGATIVE); KETONES,URINE Negative (NEGATIVE); LEUKOCYTE ESTERASE ,URINE Negative (NEGATIVE); NITRATE,URINE Negative (NEGATIVE); OCCULT BLOOD,URINE Small (NEGATIVE); PH,URINE 6.5 (5.0-8.0); PROTEIN,URINE Negative (NEGATIVE); UROBILINOGEN,URINE 0.2 mg/dL (0.2-1.0)
[2021-10-30 12:46] LABS: BACTERIA,URINE Rare /HPF (None Seen); SQUAMOUS EPITHELIAL CELL,UR Few /HPF (0-2)
[2021-10-30 12:47] LABS: CREATININE 0.8 mg/dL (0.5-1.5); POTASSIUM 3.8 mmol/L (3.5-5.1)
[2021-10-30 12:49] LABS: HCG,QUAL RESULT NEGATIVE (NEGATIVE)
[2021-10-30 12:51] LABS: ALBUMIN 3.6 g/dL (3.5-5.0); BILIRUBIN,TOTAL 0.6 mg/dL (0.2-1.0); TOTAL PROTEIN, SERUM 8.3 g/dL (6.0-8.3)
[2021-10-30] MEDS ORDERED: KETOROLAC 30MG VIAL (30MG/ML) IV ONE (14:30)
[2021-10-30] MEDS ORDERED: TAMSULOSIN HCL 0.4 MG CAP.ER.24H PO SCH (14:30)
[2021-10-30] MEDS ORDERED: MORPHINE 4 MG SYG IV ONE (16:30)
[2021-10-30] MEDS ORDERED: IBUP-2070 PO (17:17)
[2021-10-30] MEDS ORDERED: ONDA4TAB4 PO (17:17)
[2021-10-30] MEDS ORDERED: TAMS-1 PO (17:17)
[2021-10-30] MEDS ORDERED: ACET1TAB25 PO (17:17)
[2021-10-30 17:34] VITALS: BP 132/78
== END 2021-10-30 17:37 | disposition home or self-care (01) ==
LOC: EDH 11:32
DX: R10.9 Unspecified abdominal pain (principal); R11.0 Nausea; R50.9 Fever, unspecified; Z91.018 Allergy to other foods; Z91.040 Latex allergy status; Z88.1 Allergy status to other antibiotic agents; Z79.1 Long term (current) use of non-steroidal anti-inflammatories (NSAID); Z79.899 Other long term (current) drug therapy; Z87.442 Personal history of urinary calculi; Z90.49 Acquired absence of other specified parts of digestive tract
CPT/HCPCS: 36415; 74176; 80053; 81001; 81025; 82150; 83690; 85025; 96374; 96375; 96376; 99284; J1885; J2270 ×2; J2405; J7040

== ENCOUNTER 2023-04-07 16:32 | Inpatient (IN) | payer BC ==
[2023-04-07] VITALS (15 sets, daily range): BP systolic 118–183; BP diastolic 70–118
[~2023-04-07 16:32] MED LIST changes: +ACET-2079 PO; +IBUP-2070 PO; +ONDA4TAB4 PO; +TAMS-1 PO
[2023-04-07] MEDS ORDERED: NICARDIPINE 25MG INJ 50 MG in 0.9% NACL 250ML 230 ML IV SCH (18:00)
[2023-04-07] MEDS ORDERED: NITROGLYCERIN 1GM OINT 1 INCH/1GM TD SCH (18:00)
[2023-04-07] MEDS ORDERED: MORPHINE 2 MG SYG IVP PRN (18:00)
[2023-04-07] MEDS: NITROGLYCERIN 1GM OINT 1 INCH/1GM TD SCH (18:09)
[2023-04-07] MEDS: ONDANSETRON 4MG INJ IV PRN ×2 (18:09→23:27)
[2023-04-07] MEDS: ACETAMINOPHEN 325 MG TAB PO PRN ×2 (18:10→23:27)
[2023-04-07] MEDS: LACTATED RINGERS 1000ML 1,000 ML IV SCH (18:11)
[2023-04-07 18:18] LABS: HEMATOCRIT 38.9 % (36-48); MEAN CORPUSCULAR HEMOGLOBIN 25.6 pg (27.0-33.0); MEAN CORPUSCULAR HGB CONC 31.1 g/dL (32.0-36.0); MEAN CORPUSCULAR VOLUME 82.4 fL (79-99); RED BLOOD CELL COUNT(AUTO) 4.72 MIL/uL (4.00-5.50); RED CELL DISTRIBUTION WIDTH 14.3 % (11.0-15.5); WHITE BLOOD COUNT (AUTO) 10.8 K/uL (4.8-10.8)
[2023-04-07 18:25] LABS: INR 0.93 (0.85-1.15); PROTHROMBIN TIME 10.1 SEC (9.6-11.6)
[2023-04-07 18:26] LABS: PARTIAL THROMBOPLASTIN TIME 25.1 SEC (26.3-35.5)
[2023-04-07 18:28] LABS: CARBON DIOXIDE 29 mmol/L (21-32); CHLORIDE 101 mmol/L (101-111); CREATININE 0.6 mg/dL (0.5-1.5); GLOMERULAR FILTR. RATE CALC 116 mL/min (>90); GLUCOSE,RANDOM 213 mg/dL (70-105); POTASSIUM 4.1 mmol/L (3.5-5.1); SODIUM SERUM 138 mmol/L (136-145); UREA NITROGEN, BLOOD 9 mg/dL (7-18)
[2023-04-07 18:42] LABS: CREATINE KINASE, TOTAL 61 U/L (21-232); MYOGLOBIN 25 ng/mL (10-92)
[2023-04-07] MEDS ORDERED: POTASSIUM CHLORIDE 20MEQ/100ML 100 ML IV PRN (19:30)
[2023-04-07] MEDS ORDERED: POTASSIUM CHLORIDE 10% ELIXIR 20 MEQ/15 ML UDCUP PO PRN (19:30)
[2023-04-07] MEDS ORDERED: MAGNESIUM 2GM PREMIX 50ML 50 ML IV PRN (19:30)
[2023-04-07] MEDS ORDERED: KCL 20 MEQ ERTAB PO PRN (19:30)
[2023-04-07] MEDS: ALPRAZOLAM 0.25 MG TABLET PO SCH (20:16)
[2023-04-07] MEDS ORDERED: HEPARIN 5,000 UNIT VIAL SQ SCH (21:00)
[2023-04-08] VITALS (20 sets, daily range): BP systolic 113–147; BP diastolic 66–98
[2023-04-08] MEDS: NITROGLYCERIN 1GM OINT 1 INCH/1GM TD SCH ×2 (02:00→10:04)
[2023-04-08] MEDS: LACTATED RINGERS 1000ML 1,000 ML IV SCH (03:16)
[2023-04-08 04:20] LABS: HEMATOCRIT 36.2 % (36-48); MEAN CORPUSCULAR HGB CONC 31.5 g/dL (32.0-36.0); MEAN CORPUSCULAR VOLUME 82.6 fL (79-99); RED BLOOD CELL COUNT(AUTO) 4.38 MIL/uL (4.00-5.50); RED CELL DISTRIBUTION WIDTH 14.4 % (11.0-15.5); WHITE BLOOD COUNT (AUTO) 10.5 K/uL (4.8-10.8)
[2023-04-08 04:39] LABS: ALANINE AMINOTRANSFERASE 29 U/L (12-78); ALBUMIN 3.1 g/dL (3.5-5.0); ASPARTATE AMINOTRANSFERASE 14 U/L (10-37); BILIRUBIN,DIRECT 0.2 mg/dL (0.0-0.3); CARBON DIOXIDE 33 mmol/L (21-32); CHLORIDE 102 mmol/L (101-111); CHOLESTEROL 178 mg/dL (<200); CREATINE KINASE, TOTAL 44 U/L (21-232); CREATININE 0.7 mg/dL (0.5-1.5); GLOMERULAR FILTR. RATE CALC 112 mL/min (>90); GLUCOSE,RANDOM 168 mg/dL (70-105); HDL CHOLESTEROL 41 mg/dL (35-85); LDL DIRECT 111 mg/dL (0-99); MYOGLOBIN 32 ng/mL (10-92); POTASSIUM 3.9 mmol/L (3.5-5.1); SODIUM SERUM 139 mmol/L (136-145); TOTAL PROTEIN, SERUM 6.7 g/dL (6.0-8.3); TRIGLYCERIDES 150 mg/dL (30-200); UREA NITROGEN, BLOOD 11 mg/dL (7-18)
[2023-04-08] MEDS: ACETAMINOPHEN 325 MG TAB PO PRN (07:44)
[2023-04-08] MEDS ORDERED: ACETAMINOPHEN 325 MG TAB PO PRN (08:00)
[2023-04-08] MEDS: ASPIRIN 81 MG EC TAB PO SCH (08:07)
[2023-04-08] MEDS: PANTOPRAZOLE 40 MG TAB DR PO SCH (08:07)
[2023-04-08] MEDS: LEVOTHYROXINE 75 MCG TABLET PO SCH (08:45)
[2023-04-08] MEDS ORDERED: LOSARTAN 50 MG TABLET PO SCH (09:00)
[2023-04-08] MEDS: LOSARTAN 25 MG TABLET PO SCH ×2 (09:00→15:17)
[2023-04-08 11:06] LABS: AMPHET/METH SCREEN,URINE NEGATIVE (NEGATIVE); BARBITURATE SCREEN, URINE NEGATIVE (NEGATIVE); BENZODIAZEPINES SCREEN,URINE NEGATIVE (NEGATIVE); CANNABINOID SCREEN,URINE NEGATIVE (NEGATIVE); COCAINE SCREEN,URINE NEGATIVE (NEGATIVE); OPIATE SCREEN,URINE NEGATIVE (NEGATIVE); PHENCYCLIDINE SCREEN,URINE NEGATIVE (NEGATIVE)
[2023-04-08 11:12] LABS: APPEARANCE,URINE CLEAR (CLEAR); BILIRUBIN,URINE NEGATIVE (NEGATIVE); COLOR,URINE COLORLESS (YELLOW); GLUCOSE, URINE (UA) 200 mg/dL (NEGATIVE); KETONES,URINE NEGATIVE (NEGATIVE); LEUKOCYTE ESTERASE ,URINE NEGATIVE Leu/uL (NEGATIVE); NITRATE,URINE NEGATIVE (NEGATIVE); OCCULT BLOOD,URINE NEGATIVE (NEGATIVE); PROTEIN,URINE NEGATIVE (NEGATIVE); UROBILINOGEN,URINE 0.2 mg/dL (0.2-1.0)
[2023-04-08 11:18] LABS: WBC,URINE 0-1 /HPF (0-1)
[2023-04-08 12:26] LABS: CREATINE KINASE, TOTAL 47 U/L (21-232); MYOGLOBIN 36 ng/mL (10-92)
[2023-04-08 12:53] LABS: HEMOGLOBIN A1C 12.8 % (4.0-6.0)
[2023-04-08] MEDS: ONDANSETRON 4MG INJ IV PRN ×2 (13:09→17:40)
[2023-04-08] MEDS: ATORVASTATIN 10 MG TABLET PO SCH (13:16)
[2023-04-08 17:09] LABS: CREATINE KINASE, TOTAL 53 U/L (21-232); MYOGLOBIN 24 ng/mL (10-92)
[2023-04-08] MEDS ORDERED: DIPHENHYDRAMINE HCL 25 MG CAPSULE PO ONE (20:00)
[2023-04-08] MEDS: ALPRAZOLAM 0.25 MG TABLET PO SCH (21:02)
[2023-04-08 23:38] LABS: CREATINE KINASE, TOTAL 42 U/L (21-232); MYOGLOBIN 22 ng/mL (10-92)
[2023-04-09 00:16] VITALS: BP 113/65
[2023-04-09 04:43] VITALS: BP 116/61
[2023-04-09 07:00] VITALS: BP 144/72
[2023-04-09] MEDS: ATORVASTATIN 10 MG TABLET PO SCH (08:55)
[2023-04-09] MEDS: ASPIRIN 81 MG EC TAB PO SCH (08:55)
[2023-04-09] MEDS: PANTOPRAZOLE 40 MG TAB DR PO SCH (08:55)
[2023-04-09] MEDS: LEVOTHYROXINE 75 MCG TABLET PO SCH (08:55)
[2023-04-09] MEDS ORDERED: LOSARTAN 25 MG TABLET PO SCH (10:30)
[2023-04-09 11:00] VITALS: BP 104/60
== END 2023-04-09 15:28 | disposition home or self-care (01) | DRG 305 ==
LOC: 2BH 16:50 → 2AH 04-08 13:03
PROVIDERS: ADMIT Internal Medicine; ATTEND Internal Medicine
DX: I16.0 Hypertensive urgency (principal); E03.9 Hypothyroidism, unspecified; L50.1 Idiopathic urticaria; E05.90 Thyrotoxicosis, unspecified without thyrotoxic crisis or storm; E11.9 Type 2 diabetes mellitus without complications; E66.9 Obesity, unspecified; I10 Essential (primary) hypertension; K21.9 Gastro-esophageal reflux disease without esophagitis; Z79.82 Long term (current) use of aspirin; Z79.84 Long term (current) use of oral hypoglycemic drugs; Z79.899 Other long term (current) drug therapy; Z82.49 Family history of ischemic heart disease and other diseases of the circulatory system; Z88.1 Allergy status to other antibiotic agents; Z91.040 Latex allergy status; Z88.8 Allergy status to other drugs, medicaments and biological substances; Z91.018 Allergy to other foods
CPT/HCPCS: 36415; 74176; 76770; 80048; 80061; 80076; 80305; 81001; 82550; 82948; 83036; 83735; 83835; 83874; 83880; 84439; 84443; 84481; 84484; 85027; 85378; 85610; 85730; 93306; 93356; 93975; G0378; J1644; J2405; J3475; J3490; J7050; Q0163

== ENCOUNTER 2023-05-23 17:20 | Emergency (ER) | payer BC ==
[~2023-05-23] VITALS: Ht 154.9 cm; Wt 93.0 kg
[~2023-05-23 17:20] MED LIST changes: -ACET-2079 PO; -IBUP-2070 PO; -ONDA4TAB4 PO; -TAMS-1 PO
[2023-05-23] MEDS ORDERED: LACTATED RINGERS 1000ML 1,000 ML IV ONE (18:00)
[2023-05-23] MEDS ORDERED: MORPHINE 4 MG SYG IVP ONE ×2 (18:00→19:30)
[2023-05-23] MEDS ORDERED: ONDANSETRON 4MG INJ IVP ONE (18:00)
[2023-05-23 18:36] LABS: BASOPHILS % (AUTO) 0.4 % (0.0-5.0); EOSINOPHILS % (AUTO) 0.1 % (0.0-8.0); HEMATOCRIT 38.3 % (36-48); LYMPHOCYTES % (AUTO) 33.8 % (21.0-51.0); MEAN CORPUSCULAR HEMOGLOBIN 26.4 pg (27.0-33.0); MEAN CORPUSCULAR HGB CONC 31.9 g/dL (32.0-36.0); MEAN CORPUSCULAR VOLUME 82.9 fL (79-99); MONOCYTES % (AUTO) 6.3 % (3.0-13.0); NEUTROPHILS % (AUTO) 58.7 % (40.0-77.0); PLATELET COUNT (AUTO) 303 K/uL (130-400); RED BLOOD CELL COUNT(AUTO) 4.62 MIL/uL (4.00-5.50); RED CELL DISTRIBUTION WIDTH 15.3 % (11.0-15.5); WHITE BLOOD COUNT (AUTO) 9.2 K/uL (4.8-10.8)
[2023-05-23 18:54] LABS: CREATININE 0.8 mg/dL (0.5-1.5); POTASSIUM 3.8 mmol/L (3.5-5.1)
[2023-05-23 18:59] LABS: ALBUMIN 3.4 g/dL (3.5-5.0); TOTAL PROTEIN, SERUM 7.4 g/dL (6.0-8.3)
[2023-05-23 19:01] LABS: HCG,QUALITATIVE URINE NEGATIVE (NEGATIVE)
[2023-05-23 19:19] LABS: APPEARANCE,URINE CLEAR (CLEAR); BILIRUBIN,URINE NEGATIVE (NEGATIVE); COLOR,URINE LIGHT-YELLOW (YELLOW); GLUCOSE, URINE (UA) >=1000 mg/dL (NEGATIVE); KETONES,URINE NEGATIVE (NEGATIVE); LEUKOCYTE ESTERASE ,URINE NEGATIVE Leu/uL (NEGATIVE); NITRATE,URINE NEGATIVE (NEGATIVE); OCCULT BLOOD,URINE NEGATIVE (NEGATIVE); PROTEIN,URINE NEGATIVE (NEGATIVE); UROBILINOGEN,URINE 0.2 mg/dL (0.2-1.0)
[2023-05-23] MEDS ORDERED: ONDA4TAB10 PO (19:25)
[2023-05-23] MEDS ORDERED: KETO10 PO (19:25)
[2023-05-23] MEDS ORDERED: DOCU100T PO (19:25)
[2023-05-23 19:27] LABS: SQUAMOUS EPITHELIAL CELL,UR RARE /HPF (0-2); WBC,URINE 0-1 /HPF (0-1)
[2023-05-23 19:57] VITALS: BP 126/69
== END 2023-05-23 20:31 | disposition home or self-care (01) ==
LOC: EDH 17:20
DX: R10.9 Unspecified abdominal pain (principal); N20.0 Calculus of kidney; K59.00 Constipation, unspecified; K57.30 Diverticulosis of large intestine without perforation or abscess without bleeding; Z79.899 Other long term (current) drug therapy; Z87.442 Personal history of urinary calculi; Z98.890 Other specified postprocedural states; Z91.018 Allergy to other foods; Z91.040 Latex allergy status; Z88.8 Allergy status to other drugs, medicaments and biological substances
CPT/HCPCS: 99284; 74176; 96374; 96361; 96375; 80053; 85025; 81001; 81025; 36415; 96376; J7120; J2405; J2270 ×2

== ENCOUNTER → 2023-10-20 | Outpatient (CLI) | payer BC ==
[~2023-10-20] MED LIST changes: +DOCU100T PO; +KETO10 PO; +KETO10TA2 PO; +ONDA4TAB10 PO; -OXYB5TAB15 PO; +OXYB5TAB20 PO
== END | disposition home or self-care (01) ==
LOC: RAH 14:14
PROVIDERS: ATTEND Family Medicine
DX: Z12.31 Encounter for screening mammogram for malignant neoplasm of breast (principal)
CPT/HCPCS: 77067

== ENCOUNTER 2023-10-22 20:39 | Emergency (ER) | payer BC ==
[~2023-10-22] VITALS: Ht 154.9 cm; Wt 95.3 kg
[~2023-10-22 20:39] MED LIST changes: -KETO10TA2 PO
[2023-10-22] MEDS ORDERED: 0.9%NACL 1000ML 1,000 ML IV ONE (21:30)
[2023-10-22] MEDS ORDERED: KETOROLAC 15MG/ML VIAL (15MG/ML) IV ONE (21:30)
[2023-10-22 21:42] LABS: APPEARANCE,URINE CLEAR (CLEAR); BILIRUBIN,URINE NEGATIVE (NEGATIVE); COLOR,URINE COLORLESS (YELLOW); GLUCOSE, URINE (UA) >=1000 mg/dL (NEGATIVE); KETONES,URINE NEGATIVE (NEGATIVE); LEUKOCYTE ESTERASE ,URINE NEGATIVE Leu/uL (NEGATIVE); NITRATE,URINE NEGATIVE (NEGATIVE); OCCULT BLOOD,URINE NEGATIVE (NEGATIVE); PH,URINE 5.5 (5.0-8.0); PROTEIN,URINE NEGATIVE (NEGATIVE); UROBILINOGEN,URINE 0.2 mg/dL (0.2-1.0)
[2023-10-22 21:43] LABS: ADD UA MICROSCOPIC YES
[2023-10-22 21:44] LABS: MUCUS,URINE RARE LPF (None Seen); SQUAMOUS EPITHELIAL CELL,UR RARE /HPF (0-2); WBC,URINE 0-1 /HPF (0-1)
[2023-10-22 21:46] LABS: BASOPHILS # (AUTO) 0.03 K/uL (0.00-0.20); BASOPHILS % (AUTO) 0.3 % (0.0-5.0); HEMATOCRIT 39.7 % (36-48); IMMATURE GRANULOCYTE ABSOLUTE 0.02 K/uL (0-1); LYMPHOCYTES # (AUTO) 3.7 K/uL (1.0-4.8); LYMPHOCYTES % (AUTO) 39.7 % (21.0-51.0); MEAN CORPUSCULAR HEMOGLOBIN 28.1 pg (27.0-33.0); MEAN CORPUSCULAR VOLUME 85.2 fL (79-99); MONOCYTES # (AUTO) 0.5 K/uL (0.1-1.0); MONOCYTES % (AUTO) 5.2 % (3.0-13.0); NEUTROPHILS # (AUTO) 5.1 K/uL (1.8-7.7); NEUTROPHILS % (AUTO) 54.6 % (40.0-77.0); PLATELET COUNT (AUTO) 298 K/uL (130-400); RED BLOOD CELL COUNT(AUTO) 4.66 MIL/uL (4.00-5.50); RED CELL DISTRIBUTION WIDTH 14.7 % (11.0-15.5); WHITE BLOOD COUNT (AUTO) 9.4 K/uL (4.8-10.8)
[2023-10-22 21:56] LABS: CREATININE 0.8 mg/dL (0.5-1.5); POTASSIUM 3.8 mmol/L (3.5-5.1)
[2023-10-22 22:01] LABS: ALBUMIN 3.7 g/dL (3.5-5.0); BILIRUBIN,TOTAL 0.2 mg/dL (0.2-1.0); TOTAL PROTEIN, SERUM 8.2 g/dL (6.0-8.3)
[2023-10-22] MEDS ORDERED: IOHEXOL-350 75 ML VIAL IV ONE (22:48)
[2023-10-22] MEDS ORDERED: ONDANSETRON 4MG INJ IVP ONE (23:00)
[2023-10-22] MEDS ORDERED: KETO10TA2 PO (23:43)
[2023-10-22 23:58] VITALS: BP 137/87; PULSE 92; RESP 18; O2SAT 99
== END 2023-10-22 23:59 | disposition home or self-care (01) ==
LOC: EDH 20:39
DX: N20.0 Calculus of kidney (principal); N83.209 Unspecified ovarian cyst, unspecified side; Z79.899 Other long term (current) drug therapy; Z98.890 Other specified postprocedural states; Z88.8 Allergy status to other drugs, medicaments and biological substances; Z91.018 Allergy to other foods
CPT/HCPCS: 99284; 74177; 96374; 96361; 96375; 80053; 85025; 81001; 81025; 36415; J7030; J2405; J1885; Q9967